=== PATIENT | female | born 2000 ===

== ENCOUNTER 2021-09-18 10:17 | Emergency (ER) | payer SELFPAY ==
[2021-09-18 10:54] VITALS: BP 116/58
--- NOTE | 2021-09-18 13:53 | Emergency Department Report ---
ED Abdominal Pain HPI - General Chief Complaint: Abdominal Pain Stated Complaint: STOMACH PAIN Time Seen by Provider: 09/18/21 13:48 Source: patient Mode of arrival: Ambulatory Limitations: No Limitations - History of Present Illness Initial Comments: Is a 21-year-old female who presents to the emergency room with abdominal pain for 4 days. Patient reports pain is intermittent umbilical achy pain. Patient states symptoms initially started out with urinary frequency and nausea. She thought she had a urinary tract infection and took some leftover Cipro antibiotics once a day for 2 to 3 days. Patient also states urine had white particles in it. She is currently taking ines demetrius for nausea which controls symptoms. She is G0, , LMP August 31, 2021. Patient denies vaginal discharge, vomiting, diarrhea, fever, chills, or back pain. MD Complaint: abdominal pain Onset/Timin -: days(s) Location: periumbilical Radiation: none Migration to: no migration Severity: mild Severity scale (0 -10): 3 Quality: cramping, aching Consistency: intermittent Associated Symptoms: nausea. denies: vomiting, diarrhea, chills, dysuria - Related Data Previous Rx's Medication Instructions Recorded Last Taken Type Nitrofurantoin [place]/M-Cryst 100 mg PO Q12HR #10 capsule 09/18/21 Unknown Rx [Macrobid CAP] Ondansetron [Zofran Odt] 4 mg PO Q8HR PRN #12 tab.rapdis 09/18/21 Unknown Rx Phenazopyridine [Pyridium] 200 mg PO TID #6 tab 09/18/21 Unknown Rx Allergies Allergy/AdvReac Type Severity Reaction Status Date / Time No Known Allergies Allergy Verified 09/18/21 11:15 ED Review of Systems ROS: Stated complaint: STOMACH PAIN Other details as noted in HPI Constitutional: denies: chills, fever Respiratory: denies: cough, shortness of breath, wheezing Cardiovascular: denies: chest pain, palpitations Gastrointestinal: abdominal pain, nausea. denies: vomiting, diarrhea, constipation, hematochezia Genitourinary: frequency. denies: urgency, dysuria, discharge Musculoskeletal: denies: back pain Neurological: denies: headache, weakness, paresthesias ED Past Medical Hx - Past Medical History Previous Medical History?: No - Surgical History Past Surgical History?: No - Medications Home Medications: Home Medications Medication Instructions Recorded Confirmed Last Taken Type Nitrofurantoin [place]/M-Cryst 100 mg PO Q12HR #10 capsule 09/18/21 Unknown Rx [Macrobid CAP] Ondansetron [Zofran Odt] 4 mg PO Q8HR PRN #12 tab.rapdis 09/18/21 Unknown Rx Phenazopyridine [Pyridium] 200 mg PO TID #6 tab 09/18/21 Unknown Rx ED Physical Exam - General Limitations: No Limitations General appearance: alert, in no apparent distress - Respiratory Respiratory exam: Present: normal lung sounds bilaterally. Absent: respiratory distress - Cardiovascular Cardiovascular Exam: Present: regular rate, normal rhythm. Absent: systolic murmur, diastolic murmur, rubs, gallop - GI/Abdominal GI/Abdominal exam: Present: soft, tenderness (Suprapubic), normal bowel sounds. Absent: distended, guarding, rebound, mass, bruit - Back Exam Back exam: Absent: CVA tenderness (R), CVA tenderness (L) - Neurological Exam Neurological exam: Present: alert, oriented X3, normal gait - Psychiatric Psychiatric exam: Present: normal affect, normal mood ED Course Vital Signs 09/18/21 10:50 Temperature 98.7 F Pulse Rate 83 Respiratory 14 Rate Blood Pressure 116/58 O2 Sat by Pulse 94 Oximetry ED Medical Decision Making - Lab Data Lab Results 09/18/21 Range/Units 13:31 Urine Color Straw (Yellow) Urine Turbidity Clear (Clear) Urine pH 7.0 (5.0-7.0) Ur Specific [place] 1.004 (1.003-1.030) Urine Protein <15 mg/dl (Negative) mg/dL Urine Glucose (UA) Neg (Negative) mg/dL Urine Ketones Neg (Negative) mg/dL Urine Blood Sm (Negative) Urine Nitrite Neg (Negative) Urine Bilirubin Neg (Negative) Urine Urobilinogen < 2.0 (<2.0) mg/dL Ur Leukocyte Esterase Neg (Negative) Urine WBC (Auto) 16.0 H (0.0-6.0) /HPF Urine RBC (Auto) 2.0 (0.0-6.0) /HPF U Epithel Cells (Auto) 2.0 (0-13.0) /HPF Urine Bacteria (Auto) 2+ (Negative) /HPF Urine HCG, Qual Negative (Negative) - Medical Decision Making This is a 21 y.o. female that presents with abdominal pain and nausea for 4 days. Patient is stable and was examined by me. Vitals stable. Obtained UA and urine . No evidence of vaginal discharge for possible vaginitis. Findings are susceptible to acute cystitis. Start Macrobid, Pyridium, and Zofran. Discussed plan with patient and agreed to plan. No further questions noted by the patient. Discharged home in stable condition. Follow up with PCP in 2-3 days. - Differential Diagnosis Pyelonephritis, vaginitis Critical care attestation.: If time is entered above; I have spent that time in minutes in the direct care of this critically ill patient, excluding procedure time. ED Disposition Clinical Impression: Suprapubic abdominal pain Acute cystitis Qualifiers: Hematuria presence: with hematuria Qualified Code(s): N30.01 - Acute cystitis with hematuria Disposition: HOME / SELF CARE / HOMELESS Is pt being admited?: No Condition: Stable Instructions: Abdominal Pain (ED), Urinary Tract Infection, Adult Prescriptions: Nitrofurantoin [place]/M-Cryst [Macrobid CAP] 100 mg PO Q12HR #10 capsule Phenazopyridine [Pyridium] 200 mg PO TID #6 tab Ondansetron [Zofran Odt] 4 mg PO Q8HR PRN #12 tab.rapdis PRN Reason: Nausea Referrals: ARLIN DAVE MD [Staff Physician] - 3-5 Days Forms: Work/School Release Form(ED) Time of Disposition: 15:54
[2021-09-18 13:58] LABS: Bacteria,Urine 2+ /HPF (Negative); Bilirubin,Urine NEG (Negative); Blood,Urine SM (Negative); Color,Urine Straw (Yellow); Protein,Urine <15 mg/dL mg/dL (Negative); Urobilinogen,Urine < 2.0 mg/dL (<2.0)
[2021-09-18 14:08] LABS: HCG Qualitative,Urine Negative (Negative)
== END 2021-09-18 15:55 | disposition home or self-care (01) ==
LOC: ED 10:17
DX: R10.9 Unspecified abdominal pain (principal); N30.00 Acute cystitis without hematuria; Z79.899 Other long term (current) drug therapy
CPT/HCPCS: 81001; 81025; 87076; 87086; 87186; 99283